=== PATIENT | male | born 1950 | race Caucasian/White ===

== ENCOUNTER 2025-07-13 05:47 | Day surgery (SDC) | payer MEDICARE, SELFPAY ==
--- NOTE | 2025-06-22 15:47 | CM ---
Orthopedic Case Management Assessment
Demographics: lives with spouse in a 2 story home
Living situation: [place] and cane in home
Support Person Post Operatively: spouse
History of
VN: No
SNF: No
Outpatient : Patient has selected [facility] [place] for outpatient PT/OT, patient made aware that he needs to set up an appointment for July 16
Has patient purchased required equipment: yes
PCP: Dr. Porter
Pharmacy: [facility] in [place]
Post Operative Discharge Plan: Patient is scheduled for possible Left Total Knee on 07/13/25 and then plan is for home with VN for 3 days with PT/OT, liaison Dang with [facility], notified, and then patient to schedule appointment at
[facility] [place], patient made aware he needs to schedule appointment for 07/16/25.
--- NOTE | 2025-06-23 09:21 | VNURNOTE ---
PM [facility] liaison called pt to discuss same day joint protocol VN and PT visits. No answer. Called cell and home numbers and left messages w/contact #. Referral placed in [facility].
[2025-06-25 13:08] VITALS: BMI 32.0
[2025-06-25 13:15] LABS: ALT (SGPT) 39 U/L (0-50); AST (SGOT) 33 U/L (17-59); Albumin 4.6 g/dl (3.5-5.0); Alkaline Phosphatase 69 U/L (38-126); Blood Urea Nitrogen 13 mg/dl (9-20); Calcium 9.9 mg/dl (8.4-10.2); Carbon Dioxide 31 mmol/L (22-30); Chloride 100 mmol/L (98-107); Estimated Creatinine Clearance 79 ml/min; Glucose 202 mg/dl (70-99); Potassium 5.0 mmol/L (3.5-5.1); Sodium 138 mmol/L (135-145); Total Protein 7.3 g/dl (6.3-8.2); eGFR > 60.00
[2025-06-25 16:43] VITALS: BMI 32.0
[2025-07-13] VITALS (26 sets, daily range): BP systolic 80–162; BP diastolic 49–97; BMI 32.0
[2025-07-13 06:19] LABS: Glucose - Point of Care 134 mg/dl (70-99)
[2025-07-13] MEDS: NORMOSOL-R/PLASMALYTE-A 1000 IV ×2 (06:28→10:38)
[2025-07-13] MEDS: CELEBREX 200 MG PO (06:28)
[2025-07-13] MEDS: TYLENOL 650 MG PO (06:28)
--- NOTE | 2025-07-13 08:13 | W.DS.TRANS ---
DC Summary - Director Distribution
-
Discharge Instructions:
Discharge Diagnosis/Procedures L knee OA s/p L TKA w/ Dr Garcia 07/13/25
Diet Diabetic, Carb Controlled
Additional Diets Adequate hydration, minimize opioids, and wear
TEDs stockings to prevent low blood pressure/
dizziness.
Activity As tolerated,With Walker
Driving Restrictions Not until seen by your Dr
Bathing Restrictions OK to Shower
Other Services PT,VN
Wound Care Dressing to be removed 1 week post-surgery.
[place] to be removed at 2 week follow-up with
surgeon's office.
Instructions:
Stand-Alone Forms: SDS Total Hip and Knee D/C
Changes to Home Medications: Yes
Discharge Medications:
DC Medications w/original date entered in [facility]
metformin 500 mg tablet 500 mg PO QID 01/29/12
pravastatin 10 mg tablet 10 mg PO HS 01/29/12
Glucosamine Chondroitin 1 dose PO BID 06/23/25
acetaminophen 650 mg tablet,extended release 1,300 mg PO Q8H PRN pain 06/23/25
aspirin 81 mg tablet 81 mg PO DAILY 06/23/25
calcium carbonate (Calcium 600) 600 mg PO QPM 06/23/25
coenzyme Q10 100 mg capsule (Co Q-10) 100 mg PO BID 06/23/25
dapagliflozin propanediol 10 mg tablet (Farxiga) 10 mg PO DAILY 06/23/25
ibuprofen 200 mg tablet 400 mg PO Q6H PRN pain 06/23/25
insulin degludec 100 unit/mL (3 mL) subcutaneous pen (Tresiba FlexTouch U-100 insulin) 60 unit SC HS 06/23/25
levothyroxine 75 mcg tablet 75 mcg PO DAILY 06/23/25
lisinopril 10 mg tablet 10 mg PO DAILY 06/23/25
magnesium 200 mg tablet 210 mg PO BID 06/23/25
repaglinide 2 mg tablet 4 mg PO TID 06/23/25
acetaminophen 300 mg-codeine 30 mg tablet 1 - 2 tab PO Q6H PRN moderate-severe pain #30 tabs 06/25/25
cefadroxil 500 mg capsule 500 mg PO BID #14 caps 06/25/25
celecoxib 200 mg capsule (Celebrex) 200 mg PO DAILY Anti-inflammatory #14 caps 06/25/25
cetirizine 10 mg tablet 10 mg PO HS 06/25/25
famotidine 20 mg tablet (Pepcid) 20 mg PO HS #30 tabs 06/25/25
gabapentin 300 mg capsule 300 mg PO HS neuropathic pain/sleep #10 caps 06/25/25
mubrcwrstflb-aqyixzcz-sjfmde tablet 1 tab PO QPM 06/25/25
mupirocin 2 % topical ointment 1 applic intranasal BID #1 tube 06/25/25
ondansetron HCl 4 mg tablet 4 mg PO Q6H PRN nausea and vomiting #30 tabs 06/25/25
Home Medication Changes
cefadroxil 500 mg capsule 500 mg PO BID #14 caps 06/25/25
celecoxib 200 mg capsule (Celebrex) 200 mg PO DAILY Anti-inflammatory #14 caps 06/25/25
cetirizine 10 mg tablet 10 mg PO HS 06/25/25
famotidine 20 mg tablet (Pepcid) 20 mg PO HS #30 tabs 06/25/25
gabapentin 300 mg capsule 300 mg PO HS neuropathic pain/sleep #10 caps 06/25/25
myjhhglkutto-ovvkoovf-dquxdn tablet 1 tab PO QPM 06/25/25
mupirocin 2 % topical ointment 1 applic intranasal BID #1 tube 06/25/25
ondansetron HCl 4 mg tablet 4 mg PO Q6H PRN nausea and vomiting #30 tabs 06/25/25
Pending Results: No
[2025-07-13 09:10] LABS: Glucose - Point of Care 138 mg/dl (70-99)
[2025-07-13] MEDS: CYKLOKAPRON 650 MG PO (10:39)
[2025-07-13 10:49] LABS: Glucose - Point of Care 169 mg/dl (70-99)
[2025-07-13] MEDS: DECADRON 6 MG IV (11:14)
[2025-07-13] MEDS: ANCEF 5 IV (11:16)
[2025-07-13] MEDS: FLOMAX 0.4 MG PO ×2 (12:41→14:50)
[2025-07-13] MEDS: LASIX 10 MG IV (14:58)
== END 2025-07-13 16:33 | disposition home health service (06) ==
LOC: SDS 05:47
PROVIDERS: ATTENDING PHYSICIAN Specialist; FAMILY PHYSICIAN Family Medicine; OTHER PHYSICIAN Physician Assistant
DX: M17.12 Unilateral primary osteoarthritis, left knee (principal); E66.9 Obesity, unspecified; Z68.32 Body mass index [BMI] 32.0-32.9, adult; G47.33 Obstructive sleep apnea (adult) (pediatric); Z91.199 Patient's noncompliance with other medical treatment and regimen due to unspecified reason; Z87.891 Personal history of nicotine dependence
CPT/HCPCS: 27447; C1776; C1713; 36415; 73560; 80053; 82962; 87070; 97163